=== PATIENT | male | born 1975 | race Caucasian/White ===

== ENCOUNTER → 2017-02-12 | Outpatient (CLI) | payer OTHER, SELFPAY ==
--- NOTE | 2017-02-12 12:05 | RAD ---
EXAM DESCRIPTION: Ankle,Right 3 Views CLINICAL HISTORY: 41 years, Male, PAIN COMPARISON: None. FINDINGS: No acute fracture or dislocation. Old avulsion injury Lateral malleolus about 7 mm. Small amount soft tissue swelling laterally. Tiny posterior heel spur. . IMPRESSION: No acute fracture or dislocation. Old injury lateral malleolus. Posterior heel spur. Electronically signed by: Jordi Navarro MD 02/12/2017 12:03 PM CDT
--- NOTE | 2017-02-12 12:05 | RAD ---
EXAM DESCRIPTION: Ankle,Left 3 Views CLINICAL HISTORY: 41 years, Male, PAIN COMPARISON: None. FINDINGS: No fracture or dislocation. Small anterior spurring from the tibia at the ankle joint. Small amount calcification at the Achilles insertion. IMPRESSION: No acute fracture or dislocation. Small heel spur. Electronically signed by: Jordi Navarro MD 02/12/2017 12:04 PM CDT
== END ==
LOC: RAD 08:00
PROVIDERS: ATTEND Orthopaedic Surgery
DX: M25.572 Pain in left ankle and joints of left foot (principal); M25.571 Pain in right ankle and joints of right foot